=== PATIENT | female | born 1960 | race Caucasian/White ===

== ENCOUNTER → 2024-05-23 09:01 | Outpatient (REF) | payer BC, SELFPAY | LOC: WDC 09:01 | PROVIDERS: ATTENDING PHYSICIAN Nurse Practitioner | DX: N63.10 Unspecified lump in the right breast, unspecified quadrant (principal); N64.4 Mastodynia; N63.11 Unspecified lump in the right breast, upper outer quadrant | CPT/HCPCS: 76642; 77062; 77066 ==

== ENCOUNTER → 2024-11-11 08:16 | Outpatient (REF) | payer BC, SELFPAY | LOC: WDC 08:16 | PROVIDERS: ATTENDING PHYSICIAN Hospitalist | DX: R92.8 Other abnormal and inconclusive findings on diagnostic imaging of breast (principal) | CPT/HCPCS: 77061; 77065 ==